=== PATIENT | female | born 1950 | race African-American/Black ===

== ENCOUNTER → 2019-12-30 | Outpatient (CLI) | payer OTHER, MEDICAID | END | disposition home or self-care (01) | LOC: Rad HDHVI 10:44 | PROVIDERS: ATTEND Internal Medicine Cardiovascular Disease | DX: J98.4 Other disorders of lung (principal); I51.7 Cardiomegaly; I70.0 Atherosclerosis of aorta; M40.205 Unspecified kyphosis, thoracolumbar region | CPT/HCPCS: 71046 ==

== ENCOUNTER → 2020-01-11 | Outpatient (CLI) | payer OTHER, MEDICAID ==
[~2020-01-11] VITALS: Ht 157.5 cm; Wt 104.3 kg
[~2020-01-11] MED LIST: ADENOSINE 88 MG in GIVE UN-DILUTED 0 ML IV ONE; ADENOSINE 90 MG/30 ML INJ IV ONE
== END | disposition home or self-care (01) ==
LOC: Rad HDHVI 11:09
PROVIDERS: ATTEND Internal Medicine Cardiovascular Disease
DX: I10 Essential (primary) hypertension (principal); R07.89 Other chest pain; E78.00 Pure hypercholesterolemia, unspecified; E11.9 Type 2 diabetes mellitus without complications; R06.02 Shortness of breath
CPT/HCPCS: 78452; 93005; 93306; 96374; 96375; A9500; J0153

== ENCOUNTER → 2020-02-13 | Outpatient (CLI) | payer OTHER, MEDICAID ==
[~2020-02-13] MED LIST changes: -ADENOSINE 88 MG in GIVE UN-DILUTED 0 ML IV ONE; -ADENOSINE 90 MG/30 ML INJ IV ONE; +ALBUAER3 IN; +ALOG1TAB2 PO; +CITA10TA70 PO; +FURO40TA4 PO; +GABA100C9 PO; +GLI2T PO; +PIO30T PO; +POTA10TA51 PO; +SACU1TAB PO; +SIMV-13 PO; +TRIATAB3 PO
[2020-02-13 09:00] VITALS: BP 118/56
[2020-02-13 09:38] VITALS: BP 113/63
[2020-02-13 12:06] LABS: Basophils # (auto) 0 10 ^3/uL (0-0.2); Basophils % (auto) 0.5 % (0.0-2.0); Eosinophils # (auto) 0.5 10 ^3/uL (0-0.8); Eosinophils % (auto) 7.9 % (0.0-7.0); Hematocrit 36.5 % (36.0-46.0); Hemoglobin 11.7 g/dL (12.2-16.2); Lymphocytes # (auto) 1.2 10 ^3/uL (0.4-5.4); Lymphocytes % (auto) 20.1 % (10.0-50.0); Mean Corpuscular Hemoglobin 31.1 pg (28.0-32.0); Mean Corpuscular Hgb Conc. 32.1 g/dL (32.0-36.0); Mean Corpuscular Volume 96.8 fL (80.0-100.0); Monocytes # (auto) 0.7 10 ^3/uL (0-1.3); Monocytes % (auto) 11.8 % (0.0-12.0); Neutrophils # (auto) 3.5 10 ^3/uL (1.6-8.6); Neutrophils % (auto) 59.7 % (37.0-80.0); Nucleated Red Blood Cells % 0.1 %; Platelet Count (auto) 322 10^3/uL (140-450); Red Blood Cells 3.77 10^6/uL (4.0-5.20); Red Cell Distribution Width 15.3 % (11.8-14.3); White Blood Cell 5.9 10^3/uL (4.4-10.8)
[2020-02-13 12:20] LABS: Partial Thromboplastin Time 27.1 sec (23.64-32.05)
[2020-02-13 12:27] LABS: BUN/Creatinine Ratio 31.8; Calcium 9.1 mg/dL (8.5-10.1)
== END | disposition home or self-care (01) ==
LOC: Rad HDHVI 08:34
PROVIDERS: ATTEND Internal Medicine Cardiovascular Disease
DX: Z01.812 Encounter for preprocedural laboratory examination (principal); J44.9 Chronic obstructive pulmonary disease, unspecified; R06.02 Shortness of breath; I50.9 Heart failure, unspecified; E11.9 Type 2 diabetes mellitus without complications; E78.5 Hyperlipidemia, unspecified; I51.7 Cardiomegaly; M40.294 Other kyphosis, thoracic region
CPT/HCPCS: 36415; 71046; 80048; 85025; 85610; 85730; 93005; G0463

== ENCOUNTER 2020-02-16 08:04 | Day surgery (SDC) | payer OTHER, MEDICAID ==
[~2020-02-16] VITALS: Ht 157.5 cm; Wt 104.3 kg
[~2020-02-16 08:04] MED LIST changes: -GLI2T PO; +GLIM-6 PO
[2020-02-16] MEDS ORDERED: IOHEXOL 350 MG/ML 100ML IJ ONE (09:38)
[2020-02-16] MEDS ORDERED: LIDOCAINE 2%HCL (LOCAL ANESTH.) INJ 20ML MDV ONE (09:38)
[2020-02-16] MEDS ORDERED: fentaNYL CITRATE 100 MCG/2 ML VL ONE (09:45)
[2020-02-16] MEDS ORDERED: MIDAZOLAM HCL 1MG/1ML-2 ML VIAL ONE (09:45)
[2020-02-16] MEDS ORDERED: ANGIOMAX 250 MG VIAL IV ONE (09:45)
[2020-02-16] MEDS ORDERED: SODIUM CHL 0.9% 50 ML ONE (09:45)
[2020-02-16] MEDS ORDERED: IODIXANOL 320MG/ML 100ML BTL IV ONE (09:45)
== END 2020-02-16 12:23 | disposition home or self-care (01) ==
LOC: CATH 08:04
PROVIDERS: ATTEND Internal Medicine Cardiovascular Disease
DX: R94.39 Abnormal result of other cardiovascular function study (principal); I25.10 Atherosclerotic heart disease of native coronary artery without angina pectoris; I10 Essential (primary) hypertension; E78.5 Hyperlipidemia, unspecified; J45.909 Unspecified asthma, uncomplicated; Z98.890 Other specified postprocedural states; Z11.59 Encounter for screening for other viral diseases
CPT/HCPCS: 92920; 93458; C1760; C1769; C1887; C1894; J0583; J1644; J2250; J3010; J7030; Q9967; U0003; 99152; 99153

== ENCOUNTER → 2020-10-16 | Outpatient (CLI) | payer OTHER, MEDICAID | END | disposition home or self-care (01) | LOC: Rad HDHVI 13:52 | PROVIDERS: ATTEND Internal Medicine Cardiovascular Disease | DX: I71.2 Thoracic aortic aneurysm, without rupture (principal); I50.23 Acute on chronic systolic (congestive) heart failure; I20.0 Unstable angina | CPT/HCPCS: 93306 ==